=== PATIENT | male | born 1980 | race Caucasian/White ===

== ENCOUNTER 2025-08-09 04:55 | Emergency (ER) | payer MEDICAID ==
[~2025-08-09] VITALS: Ht 177.8 cm; Wt 91.0 kg
[2025-08-09 05:02] VITALS: O2SAT 98
[2025-08-09] MEDS: METHOCARBAMOL 500MG TABLET PO ONE (06:05)
[2025-08-09] MEDS: KETOROLAC 30MG/ML VIAL IM ONE (06:05)
[2025-08-09] MEDS ORDERED: METH-653 MT (06:50)
[2025-08-09] MEDS ORDERED: LIDO700A30 TP (06:50)
[2025-08-09] MEDS ORDERED: IBUP-1455 MT (06:50)
[2025-08-09] MEDS: LIDOCAINE 5% PATCH TOP SCH (06:58)
[2025-08-09] MEDS: MORPHINE SULFATE 4 MG/ML INJ (FOR IV/IM USE) IV ONE (06:59)
[2025-08-09 09:19] VITALS: BP 118/82; PULSE 89; RESP 15; TEMP 37.3; O2SAT 98
== END 2025-08-09 09:20 | disposition home or self-care (01) ==
LOC: ER 04:55
DX: S33.5XXA Sprain of ligaments of lumbar spine, initial encounter (principal); E11.9 Type 2 diabetes mellitus without complications; X58.XXXA Exposure to other specified factors, initial encounter; Y93.89 Activity, other specified; Y92.89 Other specified places as the place of occurrence of the external cause; Y99.8 Other external cause status
CPT/HCPCS: 99285; 96374; 72131; 96372; J1885; J2270